=== PATIENT | female | born 1975 | race Caucasian/White ===

== ENCOUNTER 2017-08-28 | Emergency (ER) | payer OTHER ==
[2017-08-28 00:58] LABS: URINE BLOOD (Dip) POC 1+ (NEGATIVE); URINE GLUCOSE (Dip) POC Negative (NEGATIVE); URINE KETONES (Dip) POC Negative (NEGATIVE); URINE LEUKOCYTE EST (Dip) POC Negative (NEGATIVE); URINE NITRITE (Dip) POC Negative (NEGATIVE); URINE TOTAL PROTEIN POC Negative (NEGATIVE)
[2017-08-28 00:58] LABS: URINE PH (Dip) POC 5.5 (5.0-8.5)
[2017-08-28] MEDS: HYDROCODONE/APAP (5/325) TAB PO (01:22)
[2017-08-28] MEDS: KETOROLAC 30 MG INJ IM (02:42)
== END 2017-08-28 03:45 | disposition home or self-care (01) ==
LOC: FTE
DX: D27.0 Benign neoplasm of right ovary (principal); R40.2412 Glasgow coma scale score 13-15, at arrival to emergency department
CPT/HCPCS: 76856; 81003; 81025; 96372; 99285-25

== ENCOUNTER 2017-09-07 05:46 | Inpatient (IN) | payer OTHER ==
[2017-09-07] MEDS: CEFAZOLIN 2 GM/50 ML (PMX) 50 ML IVPB (05:30)
[2017-09-07] MEDS: LACTATED RINGER'S 1,000 ML IV* (05:30)
[2017-09-07] MEDS ORDERED: LIDOCAINE 2% (SDV) 5 ML INJ (07:00)
[2017-09-07] MEDS ORDERED: GLYCOPYRROLATE 0.4 MG INJ (07:00)
[2017-09-07] MEDS ORDERED: PROPOFOL 1000 MG INJ (07:00)
[2017-09-07] MEDS ORDERED: ROCURONIUM 50 MG INJ (07:00)
[2017-09-07] MEDS ORDERED: NEOSTIGMINE 3 MG/3 ML SYRINGE (07:00)
[2017-09-07] MEDS ORDERED: CEFAZOLIN 1 GM INJ (07:00)
[2017-09-07] MEDS ORDERED: BUPIVACAINE 0.75%/DEXT (SPINAL) 2 ML INJ (07:06)
[2017-09-07] MEDS ORDERED: MIDAZOLAM 1 MG/ML 2 ML INJ (07:09)
[2017-09-07] MEDS ORDERED: EPINEPHrine 1 MG INJ (07:10)
[2017-09-07] MEDS ORDERED: morphine SULFATE/PF (10 MG/10 ML) INJ (07:13)
[2017-09-07] MEDS ORDERED: BUPIVACAINE 0.25%/EPI (MDV) 50 ML VIAL INJ (07:15)
[2017-09-07] MEDS ORDERED: ALBUTEROL 0.083% (NEB) 2.5 MG/3 ML AMP HHN (08:00)
[2017-09-07] MEDS ORDERED: DIPHENHYDRAMINE 50 MG INJ IV (08:00)
[2017-09-07] MEDS ORDERED: LABETALOL HCL 20MG INJ IV (08:00)
[2017-09-07] MEDS ORDERED: HYDROmorphONE 0.5 MG/0.5 ML SYG IV (08:00)
[2017-09-07] MEDS ORDERED: MIDAZOLAM 1 MG/ML 2 ML INJ IV (08:00)
[2017-09-07] MEDS ORDERED: ZOLPIDEM 5 MG TAB PO (08:00)
[2017-09-07] MEDS ORDERED: hydrALAzine 20 MG INJ IV (08:00)
[2017-09-07] MEDS ORDERED: METOCLOPRAMIDE 10 MG INJ IV ×2 (08:00→09:00)
[2017-09-07] MEDS ORDERED: NALOXONE (0.4 MG/ML) INJ IV (08:00)
[2017-09-07] MEDS ORDERED: ONDANSETRON 4 MG INJ IV (08:00)
[2017-09-07] MEDS ORDERED: HYDROmorphONE 1 MG/5 ML IV SYRINGE IV (08:00)
[2017-09-07] MEDS ORDERED: FENTAnyl 50 MCG/ML VIAL IV ×2 (08:00)
[2017-09-07] MEDS ORDERED: KETOROLAC 30 MG INJ IV (08:00)
[2017-09-07] MEDS ORDERED: PHENYLephrine (100 MCG/ML) 10ML SYG (08:04)
[2017-09-07] MEDS ORDERED: DEXAMETHASONE 4 MG/ML 1 ML INJ (08:05)
[2017-09-07] MEDS ORDERED: ONDANSETRON 4 MG INJ (08:06)
[2017-09-07] MEDS: HYDROmorphONE 1 MG/5 ML IV SYRINGE IV ×2 (09:08→09:18)
[2017-09-07] MEDS: DIPHENHYDRAMINE 50 MG INJ IV (09:08)
[2017-09-07] MEDS: ONDANSETRON 4 MG INJ IV (09:08)
[2017-09-07] MEDS: MEPERIDINE 25 MG INJ IV (09:08)
[2017-09-07] MEDS: KETOROLAC 30 MG INJ IV ×2 (09:09→21:23)
[2017-09-07] MEDS: EPHEDrine SULFATE 50 MG/5 ML SYG IV (09:28)
[2017-09-07] MEDS: FENTAnyl 50 MCG/ML VIAL IV ×2 (09:41→09:52)
[2017-09-07] MEDS: HYDROmorphONE 0.5 MG/0.5 ML SYG IV (11:02)
[2017-09-07] MEDS: morphine 2 MG INJ IV (16:01)
[2017-09-07] MEDS: HYDROCODONE/APAP (5/325) TAB PO (23:06)
[2017-09-08 06:21] LABS: ADD MAN DIFF? NO
[2017-09-08 06:31] LABS: WHITE BLOOD COUNT 8.1 10^3/ul (4.8-10.8)
[2017-09-08 06:31] LABS: EOSINOPHILS % 0.1 % (0.0-7.0); HEMATOCRIT 29.3 % (37.0-47.0); LYMPHOCYTES # 1.8 10^3/ul (0.8-2.9); LYMPHOCYTES % 22.2 % (15.0-51.0); MEAN CORPUSCULAR HEMOGLOBIN 33.8 pg (29.0-33.0); MEAN CORPUSCULAR HGB CONC 34.1 g/dl (32.0-37.0); MONOCYTE # 0.5 10^3/ul (0.3-0.9); MONOCYTES % 5.5 % (0.0-11.0); NEUTROPHIL # 5.9 10^3/ul (1.6-7.5); PLATELET COUNT 168 10^3/UL (140-415); RED BLOOD COUNT 2.96 10^6/ul (4.20-5.40); RED CELL DISTRIBUTION WIDTH 12.5 % (11.5-14.5)
[2017-09-08] MEDS: MAGNESIUM HYDROXIDE 30ML CUP PO (10:54)
[2017-09-08] MEDS: HYDROCODONE/APAP (5/325) TAB PO ×2 (10:54→17:37)
[2017-09-08] MEDS: MAGNESIUM CITRATE 300 ML BTL PO (17:37)
[2017-09-08] MEDS: ONDANSETRON 4 MG INJ IV (19:20)
[2017-09-08] MEDS: KETOROLAC 30 MG INJ IV (19:20)
[2017-09-08] MEDS: morphine LIQ (10 MG/5 ML) CUP PO (21:40)
[2017-09-09] MEDS: MAGNESIUM HYDROXIDE 30ML CUP PO (08:43)
[2017-09-09] MEDS ORDERED: IBUPROFEN 600 MG TAB PO (12:10)
[2017-09-09] MEDS: morphine LIQ (10 MG/5 ML) CUP PO (12:26)
[2017-09-09] MEDS: HYDROCODONE/APAP (5/325) TAB PO (13:18)
== END 2017-09-09 15:00 | disposition home or self-care (01) | DRG 743 ==
LOC: REC 05:46 → MS2 10:35
PROVIDERS: Specialist
PROC: 0UB00ZZ Excision of Right Ovary, Open Approach (ICD-10-PCS; principal; 2017-09-07 07:30)
PROC: 0UB70ZZ Excision of Bilateral Fallopian Tubes, Open Approach (ICD-10-PCS; 2017-09-07 07:30)
DX: D27.0 Benign neoplasm of right ovary (principal); N83.8 Other noninflammatory disorders of ovary, fallopian tube and broad ligament; Z30.2 Encounter for sterilization
CPT/HCPCS: 71045; 85025; 87086; 88305; 93005